=== PATIENT | male | born 1980 | race Two or more races ===

== ENCOUNTER 2017-04-30 15:26 | Emergency (ER) | payer OTHER ==
[2017-04-30 15:33] VITALS: BP 133/81
[2017-04-30] MEDS ORDERED: BUPROPION HCL 100 MG TABLET PO ONE (15:49)
--- NOTE | 2017-04-30 15:55 | ER Document Report ---
HPI - HPI Patient complains to provider of: medication refill Pain Level: Denies Context: Patient is a 36-year-old male who presents emergency department with a chief complaint of medication refill. Patient states that he is on Wellbutrin at home 100 mg a day that he ran out of about a week ago. Patient states that he has been stressed out about starting a new job and that he is worried that he will be hospitalized by us today and have to miss classes that he needs to complete before moving to [place] for his new job. Patient repeatedly denies any suicidal or homicidal ideations. He states that he just wants to get on his medications so we can prepare for his new job and move. I did call his local pharmacy in [place] where it was last filled and he does not have any new refills. - DERM Skin Color: Normal Past Medical History - Social History Smoking Status: Current Every Day Smoker Chew tobacco use (# tins/day): No Frequency of alcohol use: None Drug Abuse: None Family History: Reviewed & Not Pertinent Patient has suicidal ideation: No Patient has homicidal ideation: No - Past Medical History Cardiac Medical History: Reports: Hx Hypertension Renal/ Medical History: Denies: Hx Peritoneal Dialysis Psychiatric Medical History: Reports: Hx Depression Vertical Provider Document - CONSTITUTIONAL Agree With Documented VS: Yes Notes: PHYSICAL EXAM GENERAL: Alert, interacts well. NECK: Full range of motion. Supple. Trachea midline. LUNGS: Clear to auscultation bilaterally, no wheezes, rales, or rhonchi. No respiratory distress. HEART: Regular rate and rhythm. No murmurs, gallops, or rubs. ABDOMEN: Soft, nondistended, nontender. No guarding, rebound, or rigidity.. Bowel sounds present in all 4 quadrants. EXTREMITIES: Moves all 4 extremities spontaneously. No edema, radial and dorsalis pedis pulses 2/4 bilaterally. No cyanosis. NEUROLOGICAL: Alert and oriented x4. Normal speech. PSYCH: Normal affect, normal mood. denies suicidal or homicidal ideations. Patient states that he has been stressed about starting his new job and been worried about missing classes that he needs to complete before moving. Composed during exam, not tearful, able to stay on subject without retraction. No evidence of flight of ideas, hallucinations. SKIN: Warm, dry, normal turgor. No rashes or lesions noted. - INFECTION CONTROL TRAVEL OUTSIDE OF THE [place] IN LAST 30 DAYS: No - RESPIRATORY O2 Sat by Pulse Oximetry: 97 Course - Re-evaluation Re-evalutation: 04/30/17 15:52 Patient is a 36-year-old male who is hemodynamically stable, no acute distress and afebrile. He presents today anxious that he ran out of his home medications states that he does not have any refills. Patient states that he is scheduled to see Dr. Maurice Morgan on Friday to establish care in [place] until he is able to move to [place]. after repeat questioning the patient continues to deny any suicidal or homicidal ideations. Patient just requesting his home medications to be filled and that he will follow-up with Dr. reid as scheduled. Discussed with him he is able to return to the emergency department if he does start have suicidal homicidal ideations or if he has any other symptoms that are concerning to him. Patient agrees with plan and is stable for discharge home - Vital Signs Vital signs: Temp Pulse Resp BP Pulse Ox 98.0 F 78 18 133/81 H 97 04/30/17 15:32 04/30/17 15:32 04/30/17 15:32 04/30/17 15:32 04/30/17 15:32 Discharge - Discharge Clinical Impression: Medication refill Condition: Good Disposition: HOME, SELF-CARE Instructions: Depression ([facility]) Additional Instructions: Please return if you have thoughts of wanting to hurt yourself, hurt others, or have any other symptoms that are concerning to you. Prescriptions: Bupropion HCl [Wellbutrin 100 mg Tablet] 100 mg PO DAILY #10 tablet Referrals: JAKUB PALACIOS MD [ACTIVE STAFF] - Follow up as needed [facility] [Provider Group] - Follow up in 1 week
== END 2017-04-30 15:59 | disposition home or self-care (01) ==
LOC: ER 15:26
DX: Z76.0 Encounter for issue of repeat prescription (principal); Z79.899 Other long term (current) drug therapy; F17.200 Nicotine dependence, unspecified, uncomplicated
CPT/HCPCS: 99281

== ENCOUNTER 2017-04-30 20:05 | Emergency (ER) | payer OTHER ==
[2017-04-30 20:14] VITALS: BP 144/91
[2017-04-30] MEDS ORDERED: ALPRAZOLAM 0.5 MG TABLET PO ONE (20:50)
--- NOTE | 2017-04-30 20:52 | ER Document Report ---
ED Medical Screen (RME) - General Chief Complaint: Psych Problem Stated Complaint: ANXIOUS,UNABLE TO FOCUS Time Seen by Provider: 04/30/17 20:50 Mode of Arrival: Ambulatory Information source: Patient Notes: Pt is a 36 year old male with depression and anxiety who presents to the ER today for anxiety since being here earlier today and being put back on his wellbutrin. Pt states he was off of wellbutrin for some time due to cost. He went through a bad divorce last summer and is under a lot of stress trying to move and change jobs. denies suicide or homical ideations. TRAVEL OUTSIDE OF THE U[place] IN LAST 30 DAYS: No - Related Data Allergies/Adverse Reactions: No Known Allergies Allergy (Unverified 04/30/17 15:27) Past Medical History - General Information source: Patient - Social History Chew tobacco use (# tins/day): No Frequency of alcohol use: None Drug Abuse: None - Past Medical History Cardiac Medical History: Reports: Hx Hypertension Renal/ Medical History: Denies: Hx Peritoneal Dialysis Psychiatric Medical History: Reports: Hx Depression Review of Systems - Review of Systems Neurological/Psychological: See HPI Physical Exam - Vital signs Vitals: Temp Pulse Resp BP Pulse Ox 98.0 F 87 20 144/91 H 95 04/30/17 20:12 04/30/17 20:12 04/30/17 20:12 04/30/17 20:12 04/30/17 20:12 - Notes Notes: general: tearful, NAD psych: anxious appearing Course - Vital Signs Vital signs: Temp Pulse Resp BP Pulse Ox 98.0 F 87 20 144/91 H 95 04/30/17 20:12 04/30/17 20:12 04/30/17 20:12 04/30/17 20:12 04/30/17 20:12
[2017-04-30] MEDS ORDERED: HYDROXYZINE PAMOATE 25 MG CAPSULE (4 CAP/ER DISP) PO PRN (20:57)
--- NOTE | 2017-04-30 20:58 | ER Document Report ---
ED Psych Disorder / Suicide - General Chief Complaint: Psych Problem Stated Complaint: ANXIOUS,UNABLE TO FOCUS Time Seen by Provider: 04/30/17 20:50 Mode of Arrival: Ambulatory Information source: Patient Notes: Pt is a 36 year old male with depression and anxiety who presents to the ER today for anxiety since being here earlier today and being put back on his wellbutrin. Pt states he was off of wellbutrin for some time due to cost. He went through a bad divorce last summer and is under a lot of stress trying to move and change jobs. denies suicide or homical ideations. TRAVEL OUTSIDE OF THE U[place] IN LAST 30 DAYS: No - Related Data Allergies/Adverse Reactions: No Known Allergies Allergy (Unverified 04/30/17 15:27) Past Medical History - General Information source: Patient - Social History Smoking Status: Current Every Day Smoker Chew tobacco use (# tins/day): No Frequency of alcohol use: None Drug Abuse: None Family History: Reviewed & Not Pertinent Patient has suicidal ideation: No Patient has homicidal ideation: No - Past Medical History Cardiac Medical History: Reports: Hx Hypertension Renal/ Medical History: Denies: Hx Peritoneal Dialysis Psychiatric Medical History: Reports: Hx Depression Review of Systems - Review of Systems Constitutional: No symptoms reported EENT: No symptoms reported Cardiovascular: No symptoms reported Respiratory: No symptoms reported Gastrointestinal: No symptoms reported Genitourinary: No symptoms reported Male Genitourinary: No symptoms reported Musculoskeletal: No symptoms reported Skin: No symptoms reported Hematologic/Lymphatic: No symptoms reported Neurological/Psychological: See HPI Physical Exam - Vital signs Vitals: Temp Pulse Resp BP Pulse Ox 98.0 F 87 20 144/91 H 95 04/30/17 20:12 04/30/17 20:12 04/30/17 20:12 04/30/17 20:12 04/30/17 20:12 - Notes Notes: PHYSICAL EXAMINATION: GENERAL: Tearful, but in no acute distress. HEAD: Atraumatic, normocephalic. EYES: Pupils equal round and reactive to light, extraocular movements intact, sclera anicteric, conjunctiva are normal. NECK: Normal range of motion, supple without lymphadenopathy LUNGS: CTAB and equal. No wheezes rales or rhonchi. HEART: Regular rate and rhythm without murmurs EXTREMITIES: Normal range of motion, no pitting edema. No cyanosis. NEUROLOGICAL: Cranial nerves grossly intact. Normal sensory/motor exams. PSYCH: Anxious appearing SKIN: Warm, Dry, normal turgor, no rashes or lesions noted Course - Re-evaluation Re-evalutation: 04/30/17 20:55 Patient not suicidal or homicidal, I have no reason to keep him here. Patient back on his Wellbutrin from earlier visit today. I will send him home with a Vistaril pack so that he can relax in his own home with something for anxiety. This is patient's choice as I did also offer to watch him here, however he has psychiatric services outpatient and I see no reason for him to sit here all night long and wait for psych in the morning. 04/30/17 21:23 I offered pt call with Dr. Gomez cone tender yasmine, he refuses, stating he'd like to go home and try the vistaril. He does not want to stay and be further evaluated by psych. still not homicidal or suicidal, appears better even smiling now. - Vital Signs Vital signs: Temp Pulse Resp BP Pulse Ox 98.0 F 87 20 144/91 H 95 04/30/17 20:12 04/30/17 20:12 04/30/17 20:12 04/30/17 20:12 04/30/17 20:12 Discharge - Discharge Clinical Impression: Anxiety Condition: Stable Disposition: HOME, SELF-CARE Additional Instructions: Return immediately for any new or worsening symptoms. Follow up with primary care provider, call tomorrow to make followup appointment. Forms: Return to Work
== END 2017-04-30 21:07 | disposition home or self-care (01) ==
LOC: ER 20:05
DX: F41.9 Anxiety disorder, unspecified (principal); Z79.899 Other long term (current) drug therapy; F17.200 Nicotine dependence, unspecified, uncomplicated
CPT/HCPCS: 99283; J3490

== ENCOUNTER 2017-05-09 19:06 | Emergency (ER) | payer OTHER ==
[2017-05-09 21:27] VITALS: BP 104/77
--- NOTE | 2017-05-09 21:28 | ER Document Report ---
ED Psych Disorder / Suicide - General Chief Complaint: Medication Refill Stated Complaint: ANXIOUS Time Seen by Provider: 05/09/17 21:13 Mode of Arrival: Ambulatory Information source: Patient TRAVEL OUTSIDE OF THE [place] IN LAST 30 DAYS: No - HPI Patient complains to provider of: Other - anxiety Notes: Patient arrives with complaints of chronic anxiety. Patient was taking 150 mg of Wellbutrin in the past. He been off of his medication for several months due to cost and not having a physician. He was seen here 10 days ago and was given a prescription for 100 mg Wellbutrin feel like it does not seem to be helping. He is also given Vistaril which does not seem to be helping. He is in the process of trying to get established with a primary care doctor. He states that his insurance will only allow him to see primary care doctors in [place] and he does not have a license and has difficulty getting to [place] during the day to see a physician. The patient denies any homicidal suicidal ideation. No chest pain shortness of breath. No nausea, vomiting, diarrhea. He denies any other complaints at this time. - Related Data Allergies/Adverse Reactions: No Known Allergies Allergy (Verified 05/09/17 19:08) Past Medical History - Social History Smoking Status: Never Smoker Family History: Reviewed & Not Pertinent Patient has suicidal ideation: No Patient has homicidal ideation: No - Past Medical History Cardiac Medical History: Reports: Hx Hypertension Renal/ Medical History: Denies: Hx Peritoneal Dialysis Psychiatric Medical History: Reports: Hx Depression Review of Systems - Review of Systems -: Yes All other systems reviewed and negative Physical Exam - Vital signs Vitals: Temp Pulse BP Pulse Ox 97.4 F 85 113/75 97 05/09/17 19:41 05/09/17 19:41 05/09/17 19:41 05/09/17 19:41 - Notes Notes: GENERAL: alert, cooperative, nontoxic, no distress. HEAD: normocephalic, atraumatic EYES: conjunctiva pink without discharge, no external redness or swelling. EARS: no external swelling, no external redness NOSE: atraumatic, no external swelling MOUTH/THROAT: mucous membranes moist and pink, posterior pharynx without erythema, swelling, exudate. No trismus or drooling. NECK: soft, supple, full range of motion, no meningismus. CHEST: no distress, lungs clear and equal throughout. No wheezing, rales, rhonchi. CARDIAC: regular rate and rhythm, no murmur, normal capillary refill, normal pulses. No peripheral edema noted. ABDOMEN: Soft, nontender. BACK: full range of motion, no CVA tenderness. EXTREMITIES: full range of motion of all extremities. No redness, no swelling. NEURO: alert and oriented x 3, no focal deficits, full range of motion of all extremities. PYSCH: appropriate mood, affect. Patient is cooperative. No homicidal or suicidal ideation. SKIN: pink, warm, dry, no rash. Course - Re-evaluation Re-evalutation: 05/09/17 21:24 Patient is nontoxic appearing with stable vitals. He has a long history of anxiety and is been out of his Wellbutrin for quite some time. He was seen here about 10 days ago was given a prescription for 100 mg Wellbutrin. He used to take 150 mg. I will be happy to increase his dose to 150 until he can get in to see a primary care doctor. States that the dose of Vistaril he was given here did not seem to help much, we can increase his Vistaril dose for a as needed antianxiety medications. I instructed that he needs to get established with a primary care doctor that can refill his medications from this point forward, he verbalized understanding of this. [facility]. He has no homicidal or suicidal ideation in his doing well at this time and can be discharged home at this time. The patient's emergency department workup and current diagnosis were explained to the patient and or family. Follow-up instructions were provided. Medications if prescribed were discussed. Instructions for when to return to the emergency department including specific worrisome symptoms were discussed with the patient and/or family. 05/09/17 21:25 - Vital Signs Vital signs: Temp Pulse Resp BP Pulse Ox 97.4 F 85 113/75 97 05/09/17 19:41 05/09/17 19:41 05/09/17 19:41 05/09/17 19:41 Discharge - Discharge Clinical Impression: Anxiety, Medication refill Condition: Stable Disposition: HOME, SELF-CARE Instructions: Anxiety ([facility]) Additional Instructions: Take medications as prescribed. Establish the primary care doctor at the next available appointment. Follow-up sooner for worsening symptoms, homicidal or suicidal ideation, fevers, or for any further concerns. Prescriptions: Bupropion HCl [Wellbutrin Xl 150 mg 24hr Tablet] 1 tab PO DAILY #30 tab.sr.24h Hydroxyzine Pamoate [Vistaril 50 mg Capsule] 100 mg PO DAILY #15 capsule Forms: Smoking Cessation Education Referrals: [facility] [Provider Group] - Follow up as needed ROSE CAREY LPC [ALLIED HEALTH PROFESSIONAL] - Follow up as needed WIL SIMS MD [NO LOCAL MD] - Follow up as needed JAVI SMITH [PSYCH BIOINFORMATICS SPECIALIST] - Follow up as needed JOSE C HOU MD [NO LOCAL MD] - Follow up as needed OVIDIO VALENTINE NP [ALLIED HEALTH PROFESSIONAL] - Follow up as needed ESTEPHANIA QUEZADA LCSWA [ALLIED HEALTH PROFESSIONAL] - Follow up as needed LUIS DANIEL PIRES PSYD [ALLIED HEALTH PROFESSIONAL] - Follow up as needed HUY GARCIA PA-C [NO LOCAL MD] - Follow up as needed MK DOUGLAS [PSYCH BIOINFORMATICS SPECIALIST] - Follow up as needed DIEUDONNE ANTHONY NP [NO LOCAL MD] - Follow up as needed CAITLIN KEANE MD [ACTIVE STAFF] - Follow up as needed DAYNE TIDWELL MA [ALLIED HEALTH PROFESSIONAL] - Follow up as needed
== END 2017-05-09 21:27 | disposition home or self-care (01) ==
LOC: ER 19:06
DX: Z76.0 Encounter for issue of repeat prescription (principal); F41.9 Anxiety disorder, unspecified; Z79.899 Other long term (current) drug therapy
CPT/HCPCS: 99281

== ENCOUNTER 2017-07-23 20:26 | Emergency (ER) | payer SELFPAY ==
[2017-07-23 23:38] VITALS: BP 141/86
--- NOTE | 2017-07-23 23:38 | ER Document Report ---
ED General - General Chief Complaint: Anxiety Stated Complaint: ANXIOUS Time Seen by Provider: 07/23/17 23:21 Mode of Arrival: Ambulatory Information source: Patient Notes: 37-year-old male presented to ED for complaint of anxiety and anger issues today. States he had to leave work because he was having such a hard time controlling his anger. He states he is supposed to take Wellbutrin daily for his anxiety and depression but he has run out of it and he did not have the money to go to the doctor when his appointment was scheduled on July 01. He states he needs a refill on his prescription for Wellbutrin. He states he also had a prescription for Vistaril but he does not want that refilled because it does not doing any good and he does not want to pay for medicine does not make him feel any better. TRAVEL OUTSIDE OF THE U[place] IN LAST 30 DAYS: No - HPI Onset: Other - Has been out of his medicine since 01 July Onset/Duration: Gradual Quality of pain: No pain, Cramping Pain Level: Denies Associated symptoms: Other - Anxiety and anger issues, out of medication Exacerbated by: Denies Relieved by: Other - Taking his medicines Similar symptoms previously: Yes Recently seen / treated by doctor: No - Related Data Allergies/Adverse Reactions: No Known Allergies Allergy (Verified 07/23/17 20:28) Past Medical History - General Information source: Patient - Social History Smoking Status: Current Every Day Smoker Cigarette use (# per day): Yes - Half a pack a day Smoking Education Provided: Yes - 4 minutes Frequency of alcohol use: None Drug Abuse: None Occupation: Call center Lives with: Parents Family History: Reviewed & Not Pertinent Patient has suicidal ideation: No Patient has homicidal ideation: No - Past Medical History Cardiac Medical History: Reports: Hx Hypertension Pulmonary Medical History: Reports: None EENT Medical History: Reports: None Neurological Medical History: Reports: None Endocrine Medical History: Reports: None Renal/ Medical History: Reports: None Malignancy Medical History: Reports None GI Medical History: Reports: None Musculoskeltal Medical History: Reports Hx Arthritis, Reports Hx Musculoskeletal Deformity, Reports Hx Musculoskeletal Trauma Psychiatric Medical History: Reports: Hx Anxiety, Hx Depression, Other - Mood disorder Traumatic Medical History: Reports: None Infectious Medical History: Reports: None Past Surgical History: Reports: Hx Orthopedic Surgery - Lumbar surgery 2 with the right hip graft donor site - Immunizations Immunizations up to date: Yes Hx Diphtheria, Pertussis, Tetanus Vaccination: Yes Review of Systems - Review of Systems Constitutional: No symptoms reported EENT: No symptoms reported Cardiovascular: No symptoms reported Respiratory: No symptoms reported Gastrointestinal: No symptoms reported Genitourinary: No symptoms reported Male Genitourinary: No symptoms reported Musculoskeletal: No symptoms reported Skin: No symptoms reported Hematologic/Lymphatic: No symptoms reported Neurological/Psychological: No symptoms reported -: Yes All other systems reviewed and negative Physical Exam - Vital signs Vitals: Temp Pulse Resp BP Pulse Ox 98.4 F 100 18 141/86 H 96 07/23/17 20:53 07/23/17 20:53 07/23/17 20:53 07/23/17 20:53 07/23/17 20:53 Interpretation: Normal - General General appearance: Appears well, Alert - HEENT Head: Normocephalic, Atraumatic Eyes: Normal Pupils: PERRL - Respiratory Respiratory status: No respiratory distress Chest status: Nontender Breath sounds: Normal Chest palpation: Normal - Cardiovascular Rhythm: Regular Heart sounds: Normal auscultation Murmur: No - Abdominal Inspection: Normal Distension: No distension Bowel sounds: Normal Tenderness: Nontender Organomegaly: No organomegaly - Back Back: Normal, Nontender - Extremities General upper extremity: Normal inspection, Nontender, Normal color, Normal ROM , Normal temperature General lower extremity: Normal inspection, Nontender, Normal color, Normal ROM , Normal temperature, Normal weight bearing. No: Lori's sign - Neurological Neuro grossly intact: Yes Cognition: Normal Orientation: AAOx4 More Coma Scale Eye Opening: Spontaneous More Coma Scale Verbal: Oriented More Coma Scale Motor: Obeys Commands More Coma Scale Total: 15 Speech: Normal Motor strength normal: LUE, RUE, LLE, RLE Sensory: Normal - Psychological Associated symptoms: Normal affect, Normal mood - Skin Skin Temperature: Warm Skin Moisture: Dry Skin Color: Normal Course - Re-evaluation Re-evalutation: 07/24/17 00:30 This gentleman stated that he has been out of his Wellbutrin since June and has been having some issues with anger management. He states he gets a mat at work today that he had to leave and then he needed a refill on his Wellbutrin. He refused a refill on his Vistaril states he does not want to pay something that does not do him any good. He states he just wanted the Wellbutrin filled. I explained to him that he needs to follow-up with his primary doctor and his psych doctor for his medications but I would refill it this month but he really needs to follow-up with his primary doctor. - Vital Signs Vital signs: Temp Pulse Resp BP Pulse Ox 98.4 F 100 18 141/86 H 96 07/23/17 20:53 07/23/17 20:53 07/23/17 20:53 07/23/17 20:53 07/23/17 20:53 Discharge - Discharge Clinical Impression: Anxiety, Medication refill Condition: Stable Disposition: HOME, SELF-CARE Instructions: [facility] ([facility] Additional Instructions: Anxiety The physician feels that some of your health problems are being caused by anxiety. Anxiety affects your health in many ways. Anxiety alone can cause palpitations, sweats, chest pains, abdominal pains, shortness of breath, and headaches. It contributes to ulcer disease, high blood pressure, irritable bowel syndrome, and has been shown to cause flare-ups of many other diseases. Anxiety is not a simple disorder to treat. If the anxiety is due to recent life stresses, you may simply need time to "work through" the changes. If the anxiety is due to an underlying unhappiness with yourself or due to psychiatric disturbance, professional help will be needed. Your physician can refer you for further help if needed. Anti-anxiety medication is occasionally given if the stress is acute or if you are having trouble sleeping. Chronic or frequent use of these medications is not a good idea because the body becomes reliant on it, preventing you from dealing with life's normal stresses. Depression Your evaluation reveals that you have mental depression. While symptoms may be vague, they often include disturbance of sleep, fatigue, loss of appetite , and general loss of interest in life. While depression may be a side effect of drugs, or a reaction to a major change in your life, many cases have no known cause. If depression is acute, and related to a major loss in your life, you can expect it to clear completely with time. If you have been depressed a long time , are prone to repeated bouts of depression or low mood, or have been thinking of suicide, get help. Depression can be treated with anti-depressant medication and counselling. Long-term depression will often take a few weeks to clear, even with appropriate medication. Follow-up care is important. Contact your physician, the hospital emergency center, crisis line, or your counsellor if you are losing control or having self-destructive thoughts. Your Wellbutrin will be refilled for 30 days but you need to follow-up with your primary doctor to get this refilled in the future. Please take your medication as prescribed and please call your primary doctor in the morning to reschedule your visit. You requested not to have your Vistaril refilled so that has not been refilled. FOLLOW-UP CARE: If you have been referred to a physician for follow-up care, call the physician s office for an appointment as you were instructed or within the next two days. If you experience worsening or a significant change in your symptoms, notify the physician immediately or return to the Emergency Department at any time for re-evaluation. Prescriptions: Bupropion HCl [Wellbutrin Xl 150 mg 24hr Tablet] 1 tab PO DAILY #30 tab.sr.24h Forms: Elevated Blood Pressure, Return to Work Referrals: [facility] [Provider Group] - Follow up as needed
== END 2017-07-23 23:58 | disposition home or self-care (01) ==
LOC: ER 20:26
DX: Z76.0 Encounter for issue of repeat prescription (principal); F41.9 Anxiety disorder, unspecified; F32.9 Major depressive disorder, single episode, unspecified; T43.296A Underdosing of other antidepressants, initial encounter; Z91.120 Patient's intentional underdosing of medication regimen due to financial hardship; Z91.14 Patient's other noncompliance with medication regimen; I10 Essential (primary) hypertension; F17.210 Nicotine dependence, cigarettes, uncomplicated; Z71.6 Tobacco abuse counseling
CPT/HCPCS: 99281; 99406

== ENCOUNTER 2017-09-29 20:29 | Emergency (ER) | payer SELFPAY ==
[2017-09-29 20:42] VITALS: BP 123/68
== END 2017-09-29 22:30 | disposition left against medical advice (07) ==
LOC: ER 20:29
DX: Z53.21 Procedure and treatment not carried out due to patient leaving prior to being seen by health care provider (principal)

== ENCOUNTER 2017-10-01 09:56 | Emergency (ER) | payer SELFPAY ==
[2017-10-01 10:07] VITALS: BP 136/70
[2017-10-01] MEDS ORDERED: DIPHENHYDRAMINE HCL 50 MG CAPSULE PO ONE (10:14)
[2017-10-01] MEDS ORDERED: PREDNISONE 20 MG TABLET PO ONE (10:14)
[2017-10-01] MEDS ORDERED: FAMOTIDINE 20 MG TABLET PO ONE (10:15)
--- NOTE | 2017-10-01 10:30 | ER Document Report ---
HPI - HPI Pain Level: 4 Context: Patient is a 37-year-old healthy male complaining of a burning rash to his face chest and groin. Positive pruritus. Eyes are itchy and draining. His chest feels tight. Patient reports acute onset of symptoms after spending the night at somebody's house. Mouth or tongue or throat. Patient is able to speak and swallow without difficulty Associated Symptoms: None Exacerbated by: Denies Relieved by: Denies Similar symptoms previously: No Recently seen / treated by doctor: No - ROS Systems Reviewed and Negative: Yes All other systems reviewed and negative Past Medical History - General Information source: Patient - Social History Smoking Status: Current Every Day Smoker Frequency of alcohol use: Social Drug Abuse: None Lives with: Family Family History: Reviewed & Not Pertinent Patient has suicidal ideation: No Patient has homicidal ideation: No - Past Medical History Cardiac Medical History: Reports: Hx Hypertension Renal/ Medical History: Denies: Hx Peritoneal Dialysis Musculoskeltal Medical History: Reports Hx Arthritis, Reports Hx Musculoskeletal Deformity, Reports Hx Musculoskeletal Trauma Psychiatric Medical History: Reports: Hx Anxiety, Hx Depression Past Surgical History: Reports: Hx Orthopedic Surgery - Lumbar surgery 2 with the right hip graft donor site - Immunizations Immunizations up to date: Yes Hx Diphtheria, Pertussis, Tetanus Vaccination: Yes Vertical Provider Document - CONSTITUTIONAL Agree With Documented VS: Yes Exam Limitations: No Limitations - INFECTION CONTROL TRAVEL OUTSIDE OF THE [place] IN LAST 30 DAYS: No - HEENT HEENT: Atraumatic, Normal ENT Exam, PERRLA. negative: Pharyngeal Tenderness, Pharyngeal Erythema Notes: Bilateral conjunctival injection - NECK Neck: Normal Inspection, Supple - RESPIRATORY Respiratory: Breath Sounds Normal, No Respiratory Distress. negative: Wheezing - CARDIOVASCULAR Cardiovascular: Regular Rate, Regular Rhythm - MUSCULOSKELETAL/EXTREMETIES Musculoskeletal/Extremeties: MAEW, FROM - NEURO Level of Consciousness: Awake, Alert, Appropriate - DERM Integumentary: Warm, Dry, Rash - Erythematous blanchable maculopapular rash noted around eyes, anterior chest and groin. No vesicles, sloughing, or scaling Course - Re-evaluation Re-evalutation: 10/01/17 10:28 History and physical are most consistent with an allergic reaction. Patient is not exhibiting any symptoms of anaphylactic reaction. No perioral angioedema or respiratory distress. Patient given prednisone, Benadryl and Pepcid here in the ED. Prescriptions written. Home care, primary care follow-up in ED return precautions discussed with patient patient is agreeable with plan and stable for discharge - Vital Signs Vital signs: Temp Pulse Resp BP Pulse Ox 97.8 F 83 16 136/70 H 98 10/01/17 10:06 10/01/17 10:06 10/01/17 10:06 10/01/17 10:06 10/01/17 10:06 Discharge - Discharge Clinical Impression: Allergic reaction Qualifiers: Encounter type: initial encounter Qualified Code(s): T78.40XA - Allergy, unspecified, initial encounter Condition: Stable Disposition: HOME, SELF-CARE Instructions: Steroid Medication, Topical Steroid Cream or Ointment ([facility]), Use of Diphenhydramine Additional Instructions: I am treating you for a possible allergic reaction. Unknown trigger. Please take medications as prescribed. Recommend Benadryl 50 mg every 6 hours for the next 48 hours in addition to the prescribed medications. Follow-up with your primary care symptoms persist Return to the emergency department for any worsening of your status Prescriptions: Famotidine [Pepcid 20 mg Tablet] 20 mg PO BID #12 tablet Hydrocortisone [Hydrocortisone 2.5% Cream 28 gm (Clinic Use)] 1 applic TOP BID # 30 g Olopatadine HCl [Pataday] 1 - 2 drop OU DAILY #1 bottle Prednisone [Deltasone 20 mg Tablet] 3 tab PO DAILY 5 Days tablet Forms: Return to Work Referrals: LOCALMD,NO [Primary Care Provider] - Follow up as needed
== END 2017-10-01 10:40 | disposition home or self-care (01) ==
LOC: ER 09:56
DX: T78.40XA Allergy, unspecified, initial encounter (principal); R21 Rash and other nonspecific skin eruption; X58.XXXA Exposure to other specified factors, initial encounter; R07.89 Other chest pain; F17.200 Nicotine dependence, unspecified, uncomplicated; I10 Essential (primary) hypertension
CPT/HCPCS: 99283; J7512

== ENCOUNTER 2017-10-08 07:42 | Emergency (ER) | payer SELFPAY ==
--- NOTE | 2017-10-08 08:06 | ER Document Report ---
ED General - General Chief Complaint: Insect Bite Stated Complaint: POSSIBLE INSECT BITE Time Seen by Provider: 10/08/17 08:06 Mode of Arrival: Ambulatory Information source: Patient TRAVEL OUTSIDE OF THE [place] IN LAST 30 DAYS: No - HPI Notes: 37-year-old female presents the ED with complaints of a spider bite to her right thigh approximately 1 day ago. Has not tried any dego-qed-kbsuxiq medications. Denies any other area of erythema. Pain is 4 out of 10, throbbing achy. Has not tried any hot compress or warm compress to site. Reports chills. Denies fevers, chest pain,palpitations, shortness of breath, dyspnea, nausea, vomiting, diarrhea, abdominal pain, hematuria,blurred vision, double vision, loss of vision, speech changes, LH, dizziness, syncope, headaches , wheezing, ST, URI, neck pain, weakness, bowel or bladder dysfunction, saddle anesthesia, numbness or tingling in bilateral upper or lower extremities equally , muscle paralysis, weakness in bilateral upper or lower extremities equally. Denies IV drug use. - Related Data Allergies/Adverse Reactions: No Known Allergies Allergy (Verified 10/01/17 09:58) Past Medical History - General Information source: Patient - Social History Smoking Status: Unknown if Ever Smoked Family History: Reviewed & Not Pertinent - Past Medical History Cardiac Medical History: Reports: Hx Hypertension Renal/ Medical History: Denies: Hx Peritoneal Dialysis Musculoskeltal Medical History: Reports Hx Arthritis, Reports Hx Musculoskeletal Deformity, Reports Hx Musculoskeletal Trauma Psychiatric Medical History: Reports: Hx Anxiety, Hx Depression Past Surgical History: Reports: Hx Orthopedic Surgery - Lumbar surgery 2 with the right hip graft donor site - Immunizations Immunizations up to date: Yes Hx Diphtheria, Pertussis, Tetanus Vaccination: Yes Review of Systems - Review of Systems Constitutional: No symptoms reported EENT: No symptoms reported Cardiovascular: No symptoms reported Respiratory: No symptoms reported Gastrointestinal: No symptoms reported Genitourinary: No symptoms reported Male Genitourinary: No symptoms reported Musculoskeletal: No symptoms reported Skin: See HPI Hematologic/Lymphatic: No symptoms reported Neurological/Psychological: No symptoms reported Physical Exam - Vital signs Vitals: Temp Pulse Resp BP Pulse Ox 98.6 F 116 H 20 128/63 H 94 10/08/17 07:47 10/08/17 07:47 10/08/17 07:47 10/08/17 07:47 10/08/17 07:47 - Notes Notes: PHYSICAL EXAMINATION: GENERAL: Well-appearing, well-nourished and in no acute distress. HEAD: Atraumatic, normocephalic. EYES: Pupils equal round and reactive to light, extraocular movements intact, conjunctiva are normal. ENT: Nares patent, oropharynx clear without exudates. Moist mucous membranes. NECK: Normal range of motion, supple without lymphadenopathy LUNGS: Breath sounds clear to auscultation bilaterally and equal. No wheezes rales or rhonchi. HEART: Regular rate and rhythm without murmurs ABDOMEN: Soft, nontender, nondistended abdomen. No guarding, no rebound. No masses appreciated. Female : deferred Musculoskeletal: Normal range of motion, no pitting or edema. No cyanosis. NEUROLOGICAL: Cranial nerves grossly intact. Normal speech, normal gait. Normal sensory, motor exams PSYCH: Normal mood, normal affect. SKIN: Warm, Dry, normal turgor, no rashes or lesions noted. Right thigh with approximately 5 cm x 5 cm area of erythema, induration and warmth to touch. No fluctuance noted. No streaking or surrounding erythema noted, no surrounding lymphadenopathy. Course - Re-evaluation Re-evalutation: A Patient presents with symptoms most consistent with an acute cellulitis. Vitals within normal limits. Patient does not meet sepsis criteria is overall very well in appearance. Exam and history are not consistent with DVT. Patient will be started on coverage for both staph and strep. At this time will discharge with return precautions and follow-up recommendations. afebrile, healthy female who is not in any distress CBC shows a leukocytosis of 16.2, patient given 1 g Rocephin and will be placed on Keflex and Bactrim for outpatient therapy, area marked withVerbal discharge instructions given a the bedside and opportunity for questions given. Medication warnings reviewed. Patient is in agreement with this plan and has verbalized understanding of return precautions and the need for primary care follow-up in the next 24-72 hours. - Vital Signs Vital signs: Temp Pulse Resp BP Pulse Ox 98.3 F 82 16 124/67 97 10/08/17 11:15 10/08/17 11:15 10/08/17 11:15 10/08/17 11:15 10/08/17 11:15 - Laboratory Result Diagrams: 10/08/17 09:20 10/08/17 09:20 Laboratory results interpreted by me: 10/08/17 10/08/17 09:20 09:20 WBC 16.2 H Absolute Neutrophils 11.7 H Absolute Monocytes 1.7 H Total Protein 5.4 L Albumin 3.3 L Discharge - Discharge Clinical Impression: Leukocytosis Cellulitis, leg Qualifiers: Laterality: right Qualified Code(s): L03.115 - Cellulitis of right lower limb Condition: Good Disposition: HOME, SELF-CARE Instructions: Cellulitis ([facility]), MRSA Cellulitis ([facility]) Additional Instructions: Cellulitis You have an infection of your skin and underlying soft tissues called cellulitis. This is due to bacteria, which can enter through any break in the skin, or even through an irritated hair follicle. Untreated, cellulitis will usually worsen. Antibiotics are required. Usually, warm packs or warm soaks, and elevation of the infected area are recommended. You should start getting better within 24 to 36 hours. Most infections respond quickly to the right medication. Follow-up care is important, however, to check for abscess (boil) formation, unsuspected foreign body, or resistant infection. If you develop fever, chills, or if the area of infection is becoming rapidly more swollen or painful, call the doctor at once. The rash is likely due to infection of your skin. You need to take the antibiotics as prescribed. Do not stop even if the rash goes away until you have completed all the antibiotics. The area of redness was traced out here in the emergency department with a marking pen. You need to return to emergency department if the redness spreads outside of this area by more than 2 cm in any direction. You should also return if you develop fevers with temperature greater than 101, persistent vomiting, worsening pain, or have any other symptoms that are concerning to you. Take antibiotics as directed with food, take prednisone daily. Eat yogurt daily to prevent loose stool. Follow-up with her primary care provider tomorrow. Warm compress to site 20 minutes on 20 minutes off several times a day. Return immediately for any new or worsening symptoms. Follow up with primary care provider, call tomorrow to make followup appointment. Prescriptions: Clindamycin HCl 300 mg PO Q6H #28 capsule Prednisone [Deltasone 20 mg Tablet] 3 tab PO DAILY 5 Days #15 tablet Forms: Return to Work Referrals: MIGUEL VINSON MD [ACTIVE STAFF] - Follow up tomorrow LOCAL,NO [NO LOCAL MD] - Follow up as needed
[2017-10-08] MEDS ORDERED: VANCOMYCIN HCL INJ 1000 MG VIAL IV ONE (09:00)
[2017-10-08] MEDS ORDERED: KETOROLAC TROMETHAMINE INJ/PF 30 MG/1 ML SDV IV ONE (09:03)
[2017-10-08 10:04] LABS: ABSOLUTE BASOPHILS # (AUTO) 0.1 10^3/uL (0.0-0.2); ABSOLUTE EOSINOPHILS # (AUTO) 0.4 10^3/uL (0.0-0.6); ABSOLUTE LYMPHOCYTES (AUTO) 2.3 10^3/uL (0.5-4.7); ABSOLUTE MONOCYTES (AUTO) 1.7 10^3/uL (0.1-1.4); ABSOLUTE NEUT (AUTO) 11.7 10^3/uL (1.7-8.2); BASOPHILS % (AUTO) 0.3 % (0-2); EOSINOPHILS % (AUTO) 2.7 % (0-6); HEMATOCRIT 42.8 % (37.9-51.0); HEMOGLOBIN 14.8 g/dL (13.5-17.0); LYMPHOCYTES % (AUTO) 14.2 % (13-45); MEAN CORPUSCULAR HEMOGLOBIN 29.8 pg (27.0-33.4); MEAN CORPUSCULAR HGB CONC 34.7 g/dL (32.0-36.0); MEAN CORPUSCULAR VOLUME 86 fl (80-97); MONOCYTES % (AUTO) 10.8 % (3-13); PLATELET COUNT 352 10^3/uL (150-450); RED BLOOD COUNT 4.98 10^6/uL (4.35-5.55); RED CELL DISTRIBUTION WIDTH 13.8 % (11.5-14.0); TOTAL CELLS COUNTED % (AUTO) 100 %; WHITE BLOOD COUNT 16.2 10^3/uL (4.0-10.5)
[2017-10-08 10:10] LABS: BLOOD UREA NITROGEN 8 mg/dL (7-20); CALCIUM 8.6 mg/dL (8.4-10.2); CARBON DIOXIDE 26 mmol/L (22-30); CHLORIDE 106 mmol/L (98-107); GLUCOSE 98 mg/dL (75-110); POTASSIUM 4.1 mmol/L (3.6-5.0); SODIUM 141.2 mmol/L (137-145)
[2017-10-08 10:11] LABS: ALANINE AMINOTRANSFERASE 27 U/L (21-72); ALBUMIN 3.3 g/dL (3.5-5.0); ALKALINE PHOSPHATASE 105 U/L (38-126); ANION GAP 9 (5-19); ASPARTATE AMINO TRANSFERASE 17 U/L (17-59); BILIRUBIN,DIRECT 0.2 mg/dL (0.0-0.4); BILIRUBIN,TOTAL 0.2 mg/dL (0.2-1.3); TOTAL PROTEIN 5.4 g/dL (6.3-8.2)
[2017-10-08 11:18] VITALS: BP 124/67
== END 2017-10-08 11:25 | disposition home or self-care (01) ==
LOC: ER 07:42
DX: L03.115 Cellulitis of right lower limb (principal); D72.829 Elevated white blood cell count, unspecified; I10 Essential (primary) hypertension; W57.XXXA Bitten or stung by nonvenomous insect and other nonvenomous arthropods, initial encounter
CPT/HCPCS: 99282; 96374; 96375; 36415; 83605; 85025; 80053; J1885; J3370

== ENCOUNTER 2018-03-13 18:27 | Emergency (ER) | payer SELFPAY ==
--- NOTE | 2018-03-13 19:38 | RADIOLOGY REPORT (SQ) ---
EXAM DESCRIPTION: TIBIA FIBULA RIGHT COMPLETED DATE/TIME: 03/13/2018 7:23 pm REASON FOR STUDY: hit resendez on metal bed frame on friday, lateral right leg pain COMPARISON: None. NUMBER OF VIEWS: Two views. TECHNIQUE: Two radiographic images acquired of the right tibia and fibula to include the knee and an kle in at least one projection. LIMITATIONS: None. FINDINGS: MINERALIZATION: Normal. BONES: No acute fracture or dislocation. No worrisome bone lesions. SOFT TISSUES: No obvious swelling or foreign body. OTHER: No other significant finding. IMPRESSION: NEGATIVE STUDY OF THE RIGHT TIBIA AND FIBULA. NO RADIOGRAPHIC EVIDENCE OF ACUTE INJURY. TECHNICAL DOCUMENTATION: JOB ID: [id number] [employer]- All Rights Reserved Reading location - IP/workstation name: [email or web address]
[2018-03-13] MEDS ORDERED: LIDOCAINE 5% (700 MG) TRANSDERMAL ADH..PATCH TP ONE (19:45)
[2018-03-13] MEDS ORDERED: KETOROLAC TROMETHAMINE 60 MG/2 ML SDV IM ONE (19:45)
--- NOTE | 2018-03-13 19:54 | ER Document Report ---
HPI - HPI Time Seen by Provider: 03/13/18 18:44 Pain Level: 4 Notes: Patient is an otherwise healthy 37-year-old male who presents with chief complaint of right resendez pain. Patient reports that several days ago he was running late and tripped over his bed frame striking his resendez into the metal part of the frame. Patient reports pain worsening since then. Patient is able to ambulate with a steady gait. States he has tried taking Tylenol with minimal relief. - MUSCULOSKELETAL Musculoskeletal: REPORTS: Extremity pain - right lower leg Past Medical History - General Information source: Patient - Social History Smoking Status: Current Every Day Smoker Chew tobacco use (# tins/day): No Frequency of alcohol use: None Drug Abuse: None Family History: Reviewed & Not Pertinent Patient has suicidal ideation: No Patient has homicidal ideation: No - Past Medical History Cardiac Medical History: Reports: Hx Hypertension Renal/ Medical History: Denies: Hx Peritoneal Dialysis Musculoskeletal Medical History: Reports Hx Arthritis, Reports Hx Musculoskeletal Deformity, Reports Hx Musculoskeletal Trauma Psychiatric Medical History: Reports: Hx Anxiety, Hx Depression Past Surgical History: Reports: Hx Oral Surgery - wisdom teeth, Hx Orthopedic Surgery - Lumbar surgery 2 with the right hip graft donor site - Immunizations Immunizations up to date: Yes Hx Diphtheria, Pertussis, Tetanus Vaccination: Yes Vertical Provider Document - CONSTITUTIONAL Notes: PHYSICAL EXAMINATION: GENERAL: Well-appearing, well-nourished and in no acute distress. HEAD: Atraumatic, normocephalic. EYES: Pupils equal round extraocular movements intact, conjunctiva are normal. ENT: Nares patent NECK: Normal range of motion LUNGS: No respiratory distress Musculoskeletal: Normal range of motion NEUROLOGICAL: Normal speech, normal gait. PSYCH: Normal mood, normal affect. SKIN: Warm, Dry, normal turgor, no rashes or lesions noted. Mild swelling with erythema noted to right resendez. Dorsalis pedis pulse present, cap refill less than 3 seconds. Normal motor and sensation distal to injury. - INFECTION CONTROL TRAVEL OUTSIDE OF THE [place] IN LAST 30 DAYS: No Course - Re-evaluation Re-evalutation: x-rays negative for any acute findings. No evidence of come Patrick syndrome. Patient will be Placed on Toradol and discharged home in stable condition. Plan to follow-up with orthopedics if not improving over the next 3-5 days. - Vital Signs Vital signs: Temp Pulse Resp BP Pulse Ox 98.2 F 100 20 138/70 H 96 03/13/18 18:31 03/13/18 18:31 03/13/18 18:31 03/13/18 18:31 03/13/18 18:31 Procedures - Immobilization Right lower extremity Immobilizer type: Franco wrap Discharge - Discharge Clinical Impression: Contusion Qualifiers: Encounter type: initial encounter Contusion area: lower leg Laterality: right Qualified Code(s): S80.11XA - Contusion of right lower leg, initial encounter Condition: Stable Disposition: HOME, SELF-CARE Additional Instructions: Contusion Your injury has resulted in a contusion -- a crushing of the deep tissues. No injury to important structures was detected during the physician's exam. Contusions vary in the amount of pain they cause, and in the length of time required for healing. Typically, the area will become bruised, and will remain painful to touch for two or three weeks. However, most patients are back to working and playing within a few days. After the initial period of rest and cold-packs, your symptoms (together with the doctor's recommendations) will determine how rapidly you can get back to full activity. Usually this means "do what feels okay, but don't do things that hurt." If re-examination was recommended, it's important to follow up as instructed. Call the doctor or return any time if pain increases, if swelling becomes severe, if you develop numbness or weakness in an injured extremity, or if any other alarming symptoms occur. Ice & Elevation Apply ice packs frequently against the painful area. Many different schedules are recommended, such as "20 minutes on, 20 minutes off" or "one hour ice, two hours rest." If you need to work, you may need to go longer between ice treatments. You should plan to have the area ice packed AT LEAST one- fourth of the time. The ice should be applied over the wrap, tape, or splint, or over a layer of cloth -- not directly against the skin. Some ice bags have a built-in cloth and can be put directly on the skin. Your injured part should be elevated as much as possible over the next 48 hours. Try to keep the injury above the level of the heart. Avoid use of the injured area. Elevation and rest will decrease the swelling. Ibuprofen Ibuprofen is an excellent, safe drug for pain control. In addition, it has potent antiinflammatory effects which are beneficial, especially in the treatment of injuries, arthritis, or tendonitis. It's best to take ibuprofen with food. Persons with ulcer disease or allergy to aspirin should notify their physician of this before taking ibuprofen. Take the medication exactly as prescribed. Don't take additional doses unless instructed to do so by your doctor. If you develop wheezing, shortness of breath, hives, faintness, stomach pain, vomiting, or dark black stools, return for re-evaluation at once. The x-rays were negative for any fracture or dislocation. Please take the Toradol as directed to help with pain and inflammation. If your pain continues please follow-up with orthopedics. Prescriptions: Ketorolac Tromethamine [Toradol 10 mg Tablet] 10 mg PO Q6HP PRN #20 tablet PRN Reason: Lidocaine [Lidoderm 5% (700 mg) Transdermal Patch] 1 patch TP DAILY #30 adh..patch Referrals: DK ROJAS DO [ACTIVE STAFF] - Follow up as needed
[2018-03-14 08:03] VITALS: BP 128/76
== END 2018-03-13 20:28 | disposition home or self-care (01) ==
LOC: ER 18:27
DX: S80.11XA Contusion of right lower leg, initial encounter (principal); W08.XXXA Fall from other furniture, initial encounter; F17.200 Nicotine dependence, unspecified, uncomplicated; I10 Essential (primary) hypertension
CPT/HCPCS: 99283; 96372; 73590; J1885

== ENCOUNTER 2018-09-07 05:16 | Emergency (ER) | payer BC ==
[2018-09-07 05:27] VITALS: BP 125/89
[2018-09-07] MEDS ORDERED: PREDNISONE 20 MG TABLET PO ONE (06:14)
--- NOTE | 2018-09-07 06:18 | ER Document Report ---
ED General - General Chief Complaint: Hives Stated Complaint: HIVES Time Seen by Provider: 09/07/18 06:09 TRAVEL OUTSIDE OF THE [place] IN LAST 30 DAYS: No - HPI Notes: Patient is a 38-year-old male that presents to the emergency department for chief complaint of eczema flareup. Patient states the last 2 to 3 days he has had a flare of his eczema. He does report increased stress at home and has been using a new scented lotion which he believes is making it worse. He states the areas behind his knees and elbows are very itchy and irritated which is causing him hard time to sleep. He has not taken any medication at home or used anything on the area other than the new scented lotion. Patient denies any allergic reaction. He denies any difficulty breathing, wheezing, fever/chills and pain at the affected area. He does have a history of eczema and states he gets this about once a year. Past Medical History: Eczema Past Surgical History: Lumbar fusion Social History: Daily tobacco, denies drugs and alcohol. Family History: Reviewed and noncontributory for presenting illness Allergies: Reviewed, see documented allergy list. REVIEW OF SYSTEMS: CONSTITUTIONAL : No fever No chills No diaphoresis No recent illness EENT: No vision changes No congestion No sore throat CARDIOVASCULAR: No chest pain No palpitations RESPIRATORY: No shortness of breath No cough No difficulty breathing GASTROINTESTINAL: No abdominal pain No nausea No vomiting No diarrhea GENITOURINARY: No dysuria No hematuria No difficulty urinating MUSCULOSKELETAL: No back pain No leg pain No arm pain SKIN: rashes No lesions LYMPHATIC: No swollen, enlarged glands. NEUROLOGICAL: No lightheadedness No headache No weakness No paresthesias PSYCHIATRIC: No anxiety No depression PHYSICAL EXAMINATION: Vital signs reviewed, nursing noted reviewed. GENERAL: Well-appearing, well-nourished and in no acute distress. HEAD: Atraumatic, normocephalic. EYES: Eyes appear normal, extraocular movements intact, sclera anicteric, conjunctiva are normal. ENT: nares patent, oropharynx clear without exudates. Moist mucous membranes. NECK: Normal range of motion, supple without lymphadenopathy LUNGS: Breath sounds clear to auscultation bilaterally and equal. No wheezes rales or rhonchi. HEART: Regular rate and rhythm without murmurs ABDOMEN: Soft, nontender, normoactive bowel sounds. No rebound, guarding, or rigidity. No masses appreciated. EXTREMITIES: Nontender, good range of motion, no pitting or edema. NEUROLOGICAL: No focal neurological deficits. Moves all extremities spontaneously Motor and sensory grossly intact on exam. PSYCH: Normal mood, normal affect. SKIN: Warm, Dry, normal turgor, dry excoriated erythematous rash to posterior knees and bilateral AC joints - Related Data Allergies/Adverse Reactions: No Known Allergies Allergy (Verified 03/13/18 18:27) Past Medical History - Social History Smoking Status: Current Every Day Smoker Family History: Reviewed & Not Pertinent Patient has suicidal ideation: No Patient has homicidal ideation: No - Past Medical History Cardiac Medical History: Reports: Hx Hypertension Renal/ Medical History: Denies: Hx Peritoneal Dialysis Musculoskeletal Medical History: Reports Hx Arthritis, Reports Hx Musculoskeletal Deformity, Reports Hx Musculoskeletal Trauma Psychiatric Medical History: Reports: Hx Anxiety, Hx Depression Past Surgical History: Reports: Hx Oral Surgery - wisdom teeth, Hx Orthopedic Surgery - Lumbar surgery 2 with the right hip graft donor site - Immunizations Immunizations up to date: Yes Hx Diphtheria, Pertussis, Tetanus Vaccination: Yes Physical Exam - Vital signs Vitals: Temp Pulse Resp BP Pulse Ox 97.5 F 65 18 125/89 H 97 09/07/18 05:24 09/07/18 05:24 09/07/18 05:24 09/07/18 05:24 09/07/18 05:24 Course - Re-evaluation Re-evalutation: 09/07/18 06:17 Vitals reviewed. Nursing notes reviewed. Patient has pretty extensive eczema flareup behind his bilateral knees and in both of his AC joints. I do not appreciate any facial lesions at this time. Patient will be started on prednisone for his eczema exacerbation. He was counseled on deseeding his scented lotion and starting Aquaphor or Eucerin unscented for moisturizing. He was referred to dermatology. There is no current sign of overlying infection. He is stable at discharge. - Vital Signs Vital signs: Temp Pulse Resp BP Pulse Ox 97.5 F 65 18 125/89 H 97 09/07/18 05:24 09/07/18 05:24 09/07/18 05:24 09/07/18 05:24 09/07/18 05:24 Discharge - Discharge Clinical Impression: Eczema Qualifiers: Eczema type: unspecified Qualified Code(s): L30.9 - Dermatitis, unspecified Condition: Stable Disposition: HOME, SELF-CARE Instructions: Atopic Dermatitis (Eczema) ([facility]) Additional Instructions: Please return to the emergency department if you have any worsening, or concern of your symptoms. Please return to the emergency department if you develop chest pain, difficulty breathing, severe abdominal pain, or ongoing vomiting. Please follow-up with your primary care physician in 2-3 days and any other recommended physicians. If prescribed, take all medications as directed. If you have any questions or concerns do not hesitate to return the emergency department for evaluation. Keep the areas affected moisturized with non-scented white lotions like Eucerin or Aquaphor Prescriptions: Prednisone [Deltasone 20 mg Tablet] 2 tab PO DAILY 5 Days tablet Referrals: EJ BRAR DO [ACTIVE STAFF] - Follow up as needed
== END 2018-09-07 06:23 | disposition home or self-care (01) ==
LOC: ER 05:16
DX: L30.9 Dermatitis, unspecified (principal); I10 Essential (primary) hypertension; F17.200 Nicotine dependence, unspecified, uncomplicated
CPT/HCPCS: 99282; J7512